=== PATIENT | female | born 1995 | race African-American/Black ===

== ENCOUNTER 2020-07-16 21:30 | Inpatient (IN) ==
[2020-07-16] MEDS ORDERED: ONDANSETRON 4 MG/2 ML VIAL IV PRN (21:53)
[2020-07-16] MEDS ORDERED: ACETAMINOPHEN 325 MG TABLET PO PRN ×2 (21:53→23:32)
[2020-07-16] MEDS ORDERED: BUTORPHANOL 2 MG/ML VIAL IV PRN (21:53)
[2020-07-16] MEDS ORDERED: MEPERIDINE 50 MG/1 ML VIAL IV PRN (21:53)
[2020-07-16] MEDS ORDERED: LACTATED RINGERS 1,000 ML IV SCH (22:00)
[2020-07-16] MEDS ORDERED: AMPICILLIN INJ 2,000 MG in SODIUM CHLORIDE 0.9% 100 ML IV ONE (22:08)
[2020-07-16 22:15] LABS: Basophils % 0.2 % (0.0-0.8); Eosinophils % 0.1 % (0.00-10.9); Hematocrit 38.1 VOL% (35.7-47.0); Immature Granulocytes % 0.6 %; Immature Granulocytes Absolute 0.05 #; Lymphocytes # 2.3 10*3/uL (1.4-4.0); Lymphocytes % 28.4 % (21.3-54.2); Mean Corpuscular HGB Conc 34.1 GM/DL (32-36); Mean Platelet Volume 9.2 FL (9.6-12.0); Monocytes % 7.2 % (1.7-12.7); Neutrophils % 63.5 % (38.7-73.9); Platelet Count 242 T/CUMM (130-400); Red Blood Count 4.14 MC/CUMM (3.8-5.5); Red Cell Distribution Width 12.4 % (9.3-17.3); White Blood Count 8.1 T/CUMM (4-12)
[2020-07-16] MEDS ORDERED: OXYTOCIN/LR 20 UNIT/1,000 ML BAG IV ONE ×2 (22:35→23:32)
[2020-07-16] MEDS ORDERED: TRANEXAMIC ACID 1,000 MG/10 ML VIAL ONE (22:35)
[2020-07-16] MEDS ORDERED: miSOPROStoL 200 MCG TABLET ONE (22:35)
[2020-07-16] MEDS ORDERED: METHYLERGONOVINE 0.2 MG/1 ML AMP ONE (22:35)
[2020-07-16] MEDS ORDERED: CARBOPROST TROMETHAMINE 250 MCG/ML AMP IM ONE (22:36)
[2020-07-16] MEDS ORDERED: SODIUM CHLORIDE 0.9% 0 ML IV ONE (22:37)
[2020-07-16] MEDS ORDERED: LIDOCAINE 1% 50 ML VIAL ONE (22:37)
[2020-07-16 22:42] LABS: Albumin 2.9 G/DL (3.4-5.0); Bilirubin,Total 0.6 MG/DL (0.2-1.0); Calcium 9.2 MG/DL (8.5-10.1); Osmolality,Calculated 266.1 MOS/KG (273-304); Potassium 3.6 MMOL/L (3.5-5.1); Total Protein 7.7 G/DL (6.4-8.3)
[2020-07-16 23:05] LABS: Cord Arterial Blood HCO3 25.2 MMOL/L
[2020-07-16 23:08] LABS: Cord Venous Blood HCO3 21.8 MMOL/L; Cord Venous Blood PCO2 37.2 MMHG; Cord Venous Blood PO2 42.8 MMHG
[2020-07-16] MEDS ORDERED: MEASLES/MUMPS/RUBELLA VACCINE 0.5 ML VIAL SUBCUT ONE (23:32)
[2020-07-16] MEDS ORDERED: LANOLIN 50% CREAM 0.3 OZ TUBE TOP PRN (23:32)
[2020-07-16] MEDS ORDERED: WITCH HAZEL PADS 100/JAR TOP PRN (23:32)
[2020-07-16] MEDS ORDERED: DIPH/TET/ACEL PERT BOOSTER VACCINE 0.5 ML VIAL IM ONE (23:32)
[2020-07-16] MEDS ORDERED: HYDROCORTISONE 2.5% RECTAL CREAM 30 GM TUBE TOP PRN (23:32)
[2020-07-16] MEDS ORDERED: RHO(D) IMMUNE GLOBULIN 300 MCG SYRINGE IM ONE (23:32)
[2020-07-16] MEDS ORDERED: oxyCODONE/ACETAMINOPHEN 5-325 MG TABLET PO PRN ×2 (23:32)
[2020-07-16] MEDS ORDERED: BISACODYL 10 MG SUPP RECTAL PRN (23:32)
[2020-07-16] MEDS ORDERED: BENZOCAINE 20%/MENTHOL 0.5% SPRAY 56 GM CAN TOP PRN (23:32)
[2020-07-17] MEDS: IBUPROFEN 800 MG TABLET PO PRN ×2 (03:57→17:44)
[2020-07-17 07:27] LABS: Basophils % 0.2 % (0.0-0.8); Eosinophils % 0.1 % (0.00-10.9); Hematocrit 35.5 VOL% (35.7-47.0); Hemoglobin 12.5 GM/DL (12.0-16.0); Immature Granulocytes % 0.4 %; Immature Granulocytes Absolute 0.05 #; Lymphocytes # 2.5 10*3/uL (1.4-4.0); Lymphocytes % 20.6 % (21.3-54.2); Mean Corpuscular HGB Conc 35.2 GM/DL (32-36); Mean Corpuscular Volume 90.3 FL (87-102); Mean Platelet Volume 9.4 FL (9.6-12.0); Neutrophils % 71.7 % (38.7-73.9); Platelet Count 218 T/CUMM (130-400); Red Blood Count 3.93 MC/CUMM (3.8-5.5); Red Cell Distribution Width 12.4 % (9.3-17.3); White Blood Count 12.3 T/CUMM (4-12)
[2020-07-17] MEDS: DOCUSATE SODIUM 100 MG CAPSULE PO SCH ×2 (09:28→21:15)
[2020-07-17] MEDS: FERROUS SULFATE 325 MG TABLET PO SCH ×3 (09:29→21:15)
[2020-07-17] MEDS: MULTIVITAMIN (PRENATAL) TABLET PO SCH (09:29)
[2020-07-18 07:15] VITALS: BP 126/84
[2020-07-18] MEDS: DOCUSATE SODIUM 100 MG CAPSULE PO SCH (08:48)
[2020-07-18] MEDS: MULTIVITAMIN (PRENATAL) TABLET PO SCH (08:49)
[2020-07-18] MEDS: FERROUS SULFATE 325 MG TABLET PO SCH (08:50)
== END 2020-07-18 10:50 | disposition home or self-care (01) | DRG 560 ==
LOC: N.LDOUT 21:30 → N.LD 21:37 → N.OB 07-17 03:24
PROVIDERS: ADMIT Nurse Practitioner Women's Health; ATTEND Obstetrics & Gynecology